=== PATIENT | female | born 1965 | race Two or more races ===

== ENCOUNTER 2024-12-10 00:22 | Emergency (ER) | payer MEDICAID, SELFPAY ==
[2024-12-10 00:27] VITALS: BMI 21.2
[2024-12-10 00:39] VITALS: BP 163/82; PULSE 67; RESP 16; TEMP 36.9; O2SAT 99
--- NOTE | 2024-12-10 00:50 | XR_ITS ---
Examination: Wrist, left 3 views Technique: Wrist AP, oblique, lateral 3 views Date and time of exam: December 10, 2024 0135 hours INDICATIONS: Injured the wrist last week, wrist pain. FINDINGS: No acute fracture. No dislocation No foreign body IMPRESSION: No acute fracture Suggest short-term follow-up as clinically warranted
--- NOTE | 2024-12-10 00:50 | XR_ITS ---
Examination: Hand, left 3 views Technique: Hand AP, oblique, lateral 3 views Date and time of exam: December 10, 2024 0135 hours INDICATIONS: Injury to the hand today, hand pain. FINDINGS: No acute fracture. No dislocation No foreign body IMPRESSION: No acute fracture
--- NOTE | 2024-12-10 00:52 | EDNOTE_ITS ---
Upper Extremity Injury RME/HPI General Chief Complaint: Hand/Wrist Problems Stated Complaint: L HAND AND WRIST PAIN/INJURY Time Seen by Provider: 12/10/24 00:49 Arrival date/time: 12/10/24 00:22 59F with no significant PMH presents to ED with L hand/wrist pain after she pulled on a ladder 1 week ago and felt something pop. Patient fracture the same wrist back in 2019. Limitations: no limitations Related Data Allergies Allergy/AdvReac Type Severity Reaction Status Date / Time No Known Allergies Allergy Verified 12/10/24 00:31 Review of Systems Review of Systems Systems Reviewed: All systems reviewed, normal except as documented Constitutional Constitutional: Reports system reviewed and no additional complaints, except as documented, Denies fever(s) and Denies headache(s) ENT Ears, Nose, Mouth, and Throat: Denies disequilibrium and Denies headache(s) Cardiovascular Cardiovascular: Reports system reviewed and no additional complaints, except as documented, Denies chest pain and Denies dyspnea Respiratory Respiratory: Reports system reviewed and no additional complaints, except as documented, Denies cough and Denies dyspnea Gastrointestinal Gastrointestinal: Reports system reviewed and no additional complaints, except as documented, Denies abdominal pain, Denies nausea and Denies vomiting Musculoskeletal Musculoskeletal: Reports as per HPI and Reports arthralgias Neurologic Neurologic: Reports system reviewed and no additional complaints, except as documented, Denies confusion, Denies disequilibrium and Denies headache(s) Psychiatric Psychiatric: Denies confusion Past Medical History Social History SMOKING STATUS: Never smoker ED Exam General Limitations: Present no limitations General appearance: Present alert and in no apparent distress Head Head exam: Present atraumatic Eye Eye exam: Present normal appearance, PERRL and EOMI ENT ENT exam: Present normal exam, normal oropharynx and mucous membranes moist Neck Neck exam: Present normal inspection, full ROM and trachea midline Chest Chest inspection: Present normal inspection and symmetric chest wall rise Respiratory Respiratory exam: Present normal lung sounds bilaterally Cardiovascular Cardiovascular exam: Present regular rate, normal rhythm and normal heart sounds Abdominal Exam Abdominal exam: Present soft and normal bowel sounds Extremities Exam Extremities exam: Present full ROM Expanded Upper Extremity Exam Forearm/Wrist exam: Present full ROM (L), tenderness and tenderness over anatomical snuff box Back Exam Back exam: Present normal inspection and full ROM Neurological Exam Neurological exam: Present alert, oriented X3 and CN II-XII intact Psychiatric Psychiatric exam: Present normal affect and normal mood Skin Skin exam: Present warm, dry, intact and normal color Course Quality Measures none Orders Category Date Time Status Splint / Immobilizer STAT Care 12/10/24 01:47 Completed XR hand comp LT min 3V Stat Exams 12/10/24 00:50 Taken XR wrist comp LT min 3V Stat Exams 12/10/24 00:50 Taken Vital Signs Vital signs: Vital Signs Temperature 98.4 F 12/10/24 00:39 Pulse Rate 67 12/10/24 00:39 Respiratory Rate 16 12/10/24 00:39 Blood Pressure 163/82 H 12/10/24 00:39 Pulse Oximetry (%) 99 12/10/24 00:39 Oxygen Delivery Method Room Air 12/10/24 00:39 O2 at 99% on RA and WNLs Extremity Injury MDM Narrative MDM Narrative:: 59F with no significant PMH presents to ED with L hand/wrist pain after she pulled on a ladder 1 week ago and felt something pop. Patient fracture the same wrist back in 2019. Physical exam reveals L wrist tenderness. No gross hand tenderness, though mildly some in anatomic snuffbox. Pain is more with ROM, which is mostly intact. Patient is afebrile, calm, and alert. Wet XR read no fx pending official report. Given snuffbox tenderness, will splint to be safe. Outpatient Receptionist given. Patient data External records reviewed:: [facility] previous records Clinical information provided by:: patient Social determinants that could affect healthcare access:: none Patient has the following chronic illnesses:: none How is presenting disease/condition affected by chronic disease/condition?: no chronic disease Evaluation data The following diagnostics were reviewed and interpreted by me:: radiology exam(s) Lab and/or radiology exams considered but not ordered:: ordered Interpretation Summary: above Medications / Prescriptions Medications or Prescriptions considered but not ordered:: not ordered Medication administrations:: n/a Consultations Consultation(s) initiated? (list below): No Diagnosis Upper Extremity Injury Differential Diagnosis: sprain and strain of wrist, fracture of wrist, finger sprain, dislocation of finger, Colles' fracture and fracture of hand Most likely diagnosis given after review of the tests above:: sprain and strain of wrist Admission Indicated Admission indicated?: not indicated Admission Request Was there a request for admission?: No Disposition Plan Disposition Plan: Discharge Discharge Attestation Discharge Attestation: The patient and all family members were given an opportunity to ask questions and understood the discharge instructions. Discharge instructions specifically effects, indications for sooner follow up or return to the emergency department, and the expected course of current diagnosis. Patient condition: Stable Discharge Plan Plan Patient Disposition: HOME (Self Care) Discharge Disposition comment: Stable Prescriptions/Referrals Referrals: No Primary/Family,Physician [Primary Care Provider] - In 1 week Problem List Clinical Impression: Sprain and strain of wrist Patient/Caregiver Discharge Instructions Education Materials: ED Wrist Sprain Additional Instructions: Please follow-up with PCP within 24-48 hours and return immediately if symptoms worsen. If problem persists, recommend outpatient PT and/or MRI follow-up. In the meantime, rest, use ice/heat, and/or compression. Print Language: German Stand Alone Forms: Patient Portal Info Letter ETHAN/EMMIE Supervising Physician ETHAN/EMMIE Supervising Physician: Dr. Temple
== END 2024-12-10 02:23 | disposition home or self-care (01) ==
PROVIDERS: Emergency Provider Emergency Medicine
DX: S63.502A Unspecified sprain of left wrist, initial encounter (principal); S66.912A Strain of unspecified muscle, fascia and tendon at wrist and hand level, left hand, initial encounter; X50.0XXA Overexertion from strenuous movement or load, initial encounter
CPT/HCPCS: 29125; 73110; 73130; 99283